=== PATIENT | female | born 1995 | race Hispanic/Latino ===

== ENCOUNTER 2024-05-14 21:40 | Inpatient (IN) | payer MEDICAID ==
[~2024-05-14] VITALS: Ht 157.5 cm; Wt 79.8 kg
[2024-05-14] MEDS ORDERED: OXYTOCIN-LR 30 UNITS/500ML 500 ML IV SCH (23:00)
[2024-05-14 23:19] LABS: APPEARANCE,URINE CLEAR (CLEAR); BILIRUBIN,URINE NEGATIVE (NEGATIVE); COLOR,URINE YELLOW (YELLOW); GLUCOSE, URINE (UA) NEGATIVE (NEGATIVE); KETONES,URINE NEGATIVE (NEGATIVE); LEUKOCYTE ESTERASE ,URINE 250 Leu/uL (NEGATIVE); NITRATE,URINE NEGATIVE (NEGATIVE); OCCULT BLOOD,URINE NEGATIVE (NEGATIVE); PROTEIN,URINE 10 mg/dL (NEGATIVE)
[2024-05-14 23:20] LABS: ADD UA MICROSCOPIC YES
[2024-05-14 23:23] LABS: MUCUS,URINE RARE LPF (None Seen); RBC,URINE 0-1 /HPF (0-1); SQUAMOUS EPITHELIAL CELL,UR FEW /HPF (0-2)
[2024-05-14] MEDS ORDERED: PROMETHAZINE HCL 25 MG/ML 1ML AMPULE IM PRN (23:30)
[2024-05-14] MEDS ORDERED: NALOXONE HCL 0.4 MG/1 ML ML IV PRN (23:30)
[2024-05-14] MEDS ORDERED: LACTATED RINGERS 500 ML 500 ML IV PRN (23:30)
[2024-05-14] MEDS ORDERED: MEPERIDINE-PF 50 MG/ML SYG IVP PRN (23:30)
[2024-05-14] MEDS ORDERED: EPHEDRINE SULFATE 50 MG/ML AMPULE IVP PRN (23:30)
[2024-05-14 23:45] LABS: HEMATOCRIT 32.5 % (36-48); MEAN CORPUSCULAR HGB CONC 33.2 g/dL (32.0-36.0); MEAN CORPUSCULAR VOLUME 87.1 fL (79-99); RED BLOOD CELL COUNT(AUTO) 3.73 MIL/uL (4.00-5.50); WHITE BLOOD COUNT (AUTO) 7.6 K/uL (4.8-10.8)
[2024-05-15] MEDS: LACTATED RINGERS 1000ML 1,000 ML IV PRN (09:45)
[2024-05-15] MEDS: OXYTOCIN-LR 30 UNITS/500ML 500 ML IV SCH (09:46)
[2024-05-15] MEDS: ROPIVACAINE 0.2% 2MG/ML 100ML VIAL EP SCH (12:46)
[2024-05-15] MEDS ORDERED: FENTANYL CITRATE PF 50 MCG/1 ML 2ML VIAL ONE ×2 (12:55→19:20)
[2024-05-15] MEDS ORDERED: CALDOLOR 800MG+NS 250ML 250 ML IV PRN (18:30)
[2024-05-15] MEDS: CEFAZOLIN SODIUM 2 GM VIAL IVPB PRN (19:19)
[2024-05-15] MEDS ORDERED: LIDOCAINE 2%-EPI 1:200,000 20 ML VIAL IJ ONE (19:19)
[2024-05-15] MEDS: CITRIC ACID/SODIUM CITRATE 30 ML UDCUP ONE (19:19)
[2024-05-15] MEDS: CEFAZOLIN SODIUM 2 GM VIAL IVPB ONE (19:29)
[2024-05-15] MEDS ORDERED: MORPHINE PF 100MG/10ML AMP IV ONE (19:30)
[2024-05-15] MEDS ORDERED: PHENYLEPHRINE HCL 10 MG/ML 1ML VIAL IV ONE (19:30)
[2024-05-15] MEDS ORDERED: OXYTOCIN 10 USP UNITS/ML ONE ×2 (19:46→19:48)
[2024-05-15] MEDS ORDERED: ONDANSETRON 4MG INJ ONE (19:50)
[2024-05-15] MEDS ORDERED: MIDAZOLAM HCL 1 MG/ML 2ML VIAL ONE (20:04)
[2024-05-15] MEDS ORDERED: MEPERIDINE-PF 75 MG/ML SYG IM PRN (21:30)
[2024-05-15] MEDS ORDERED: NALOXONE HCL 0.4 MG/1 ML ML IVP PRN (21:30)
[2024-05-15] MEDS ORDERED: 0.9%NACL 10ML VIAL IVP PRN (21:30)
[2024-05-15] MEDS ORDERED: DiphenhydrAMINE HCL 50 MG/ML VIAL IM ONE (21:30)
[2024-05-15] MEDS ORDERED: OXYTOCIN-LR 30 UNITS/500ML 500 ML IV PRN (21:30)
[2024-05-15] MEDS ORDERED: ONDANSETRON 4MG INJ IVP PRN (21:30)
[2024-05-15] MEDS ORDERED: MEPERIDINE-PF 25 MG/ML SYG IV PRN (21:30)
[2024-05-15] MEDS ORDERED: DEXTROSE 5 %-0.45 % NACL 1,000 ML IV PRN (21:30)
[2024-05-15] MEDS ORDERED: METOCLOPRAMIDE 10 MG/2 ML VIAL IVP PRN (21:30)
[2024-05-15] MEDS ORDERED: LORATADINE 10 MG TABLET PO PRN (21:30)
[2024-05-15] MEDS ORDERED: PROMETHAZINE HCL 25 MG/ML 1ML AMPULE IM PRN ×2 (21:30)
[2024-05-15 23:40] VITALS: PULSE 71; RESP 17
[2024-05-16] VITALS (7 sets, daily range): BP systolic 99–147; BP diastolic 58–80; PULSE 61–83; RESP 17–20
[2024-05-16] MEDS ORDERED: BISACODYL 10 MG SUPP.RECT RC PRN (03:00)
[2024-05-16] MEDS ORDERED: ACETAMINOPHEN 500 MG TABLET PO PRN (03:00)
[2024-05-16] MEDS ORDERED: LANOLIN 30GM OINTMENT TP PRN (03:00)
[2024-05-16] MEDS ORDERED: HYDROCODONE/ACETAMINOPHEN 5/325 MG TAB PO PRN (03:00)
[2024-05-16] MEDS ORDERED: 0.9%NACL 10ML VIAL IVP PRN (03:00)
[2024-05-16] MEDS: IBUPROFEN 800MG + NS 250ML IV PRN (03:41)
[2024-05-16 06:28] LABS: HEMATOCRIT 30.8 % (36-48); MEAN CORPUSCULAR HEMOGLOBIN 28.5 pg (27.0-33.0); MEAN CORPUSCULAR HGB CONC 33.1 g/dL (32.0-36.0); RED BLOOD CELL COUNT(AUTO) 3.58 MIL/uL (4.00-5.50); RED CELL DISTRIBUTION WIDTH 14.2 % (11.0-15.5); WHITE BLOOD COUNT (AUTO) 13.8 K/uL (4.8-10.8)
[2024-05-16] MEDS: SIMETHICONE 80 MG TAB.CHEW PO PRN (08:20)
[2024-05-16] MEDS: DOCUSATE SODIUM 100 MG CAP PO SCH (08:20)
[2024-05-16] MEDS: MEASLES/MUMPS/RUBELLA VACCINE, LIVE 0.5 ML/VIAL SQ ONE (15:39)
[2024-05-16] MEDS: DIPH,PERTUSS(ACELL),TET VAC/PF 0.5 ML VIAL IM ONE (15:40)
[2024-05-16] MEDS: ACETAMINOPHEN WITH CODEINE 1 TAB TAB PO PRN (17:46)
[2024-05-16] MEDS: IBUPROFEN 600 MG TABLET PO PRN (20:39)
[2024-05-17 03:37] VITALS: BP 138/81; PULSE 88; RESP 20
[2024-05-17 08:03] VITALS: BP 142/80; PULSE 92; RESP 18
[2024-05-17 12:00] VITALS: BP 136/88; PULSE 78; RESP 18
== END 2024-05-17 13:40 | disposition home or self-care (01) | DRG 540 ==
LOC: EDH 21:40 → OBSVTOIN 21:41 → LDH 21:41 → WSH 05-15 23:52
PROVIDERS: ADMIT Obstetrics & Gynecology; ATTEND Obstetrics & Gynecology
PROC: 10D00Z1 Extraction of Products of Conception, Low, Open Approach (ICD-10-PCS; principal; 2024-05-15 19:00)
PROC: 3E0234Z Introduction of Serum, Toxoid and Vaccine into Muscle, Percutaneous Approach (ICD-10-PCS; 2024-05-16)
PROC: 3E0234Z Introduction of Serum, Toxoid and Vaccine into Muscle, Percutaneous Approach (ICD-10-PCS; 2024-05-16)
DX: O48.0 Post-term pregnancy (principal); O34.211 Maternal care for low transverse scar from previous cesarean delivery; O62.2 Other uterine inertia; Z37.0 Single live birth; Z3A.40 40 weeks gestation of pregnancy; Z23 Encounter for immunization
CPT/HCPCS: 36415; 59510; 81001; 85027; 86850; 86870; 86900; 86901; 86905; 86922; 90707; 90715; A4314; A4344; G0378; J1741; J2250; J2274; J2371; J2405; J2590; J2795; J3010; J3490; J7120; A4248; A4649; J0690